=== PATIENT | female | born 1955 | race Caucasian/White ===

== ENCOUNTER → 2021-03-24 08:12 | Outpatient (CLI) | payer OTHER, SELFPAY ==
[2021-03-23 21:04] LABS: Probe Check PASS; Specimen Processing Control PASS
== END ==
PROVIDERS: Visit Provider Physician Assistant Surgical
DX: Z20.828 Contact with and (suspected) exposure to other viral communicable diseases (principal); J06.9 Acute upper respiratory infection, unspecified
CPT/HCPCS: 87635; U0005; U0003

== ENCOUNTER → 2024-06-30 | Outpatient (CLI) | payer OTHER, SELFPAY ==
--- NOTE | 2024-06-30 07:57 | VDLE_ITS ---
Reason For Study: BLE Swelling RIGHT LEFT GSV is normal. GSV is normal. CFV is compressible, spontaneous, phasic, CFV is compressible, spontaneous, phasic, competent and demonstrates normal competent, and demonstrates normal augmentation. augmentation. FV is compressible, spontaneous, phasic, FV is compressible, spontaneous, phasic, competent and demonstrates normal competent and demonstrates normal augmentation. augmentation. POP V is compressible, spontaneous, phasic, POP V is compressible, spontaneous, phasic, competent and demonstrates normal competent and demonstrates normal augmentation. augmentation. T/P Trunk is compressible. T/P Trunk is compressible. PTV is compressible. PTV is compressible. RT PerV is compressible. LT PerV is compressible. SSV at junction is INCOMPETENT for greater than 0.5 seconds and measures 0.43 cm. SSV is PARTIALLY COMPRESSIBLE and tortuous with bright intraluminal echoes consistent with CHRONIC SVT. Procedure This is a venous duplex using B-mode, color flow and spectral Doppler. Exam performed in department. The exam was diagnostic. VL/Venous Duplex US - [facility] Extrem Interpretation Summary Chronic superficial vein thrombosis is noted in the right small saphenous vein. Deep veins of the bilateral lower extremities are patent and compressible segme ntally. There is no evidence of bilateral lower extremity deep vein thrombosis. The bilateral great saphenous veins appear patent and compressible segmentally. Reflux noted in the right small saphenous vein Ordering Physician: Shabnam Villa Referring Physician: Shabnam Villa Performed By: Tyler Snyder, RVT
== END | disposition home or self-care (01) ==
PROVIDERS: PCP Physician Assistant; Referring Provider Physician Assistant; Visit Provider Physician Assistant
DX: M79.89 Other specified soft tissue disorders (principal)
CPT/HCPCS: 93970